=== PATIENT | female | born 1965 | race Caucasian/White ===

== ENCOUNTER 2016-05-24 08:05 | Outpatient (CLI) | payer MEDICARE, OTHER ==
[~2016-05-24] VITALS: Ht 149.9 cm; Wt 93.9 kg
[~2016-05-24 08:05] MED LIST: CEFA1VIA3 IV; CEFA2PIG IV; CEPH-507 PO; GABA-488 PO; MONT10TA24 PO; QUET25TA73 PO; SIMV40TA4 PO; VENL75CA93 PO
[2016-05-24] MEDS ORDERED: BUPIVACAINE 0.25% 30 ML (SENSORCAINE) VIAL ONE (08:08)
[2016-05-24] MEDS ORDERED: TRIAMCINOLONE ACET (KENALOG-40) 40 MG/ML 1 ML VIAL ONE (08:08)
--- OUTSIDE RECORDS SUMMARY | 2016-05-24 08:10 | XMS REPORT ---
Author Yolanda Mayer [facility] Address [address] [place], [place] [id number] Care Team Providers Care Chiropractic Assistant Name Role Phone Yolanda Washington PCP Unavailable Allergies and Adverse Reactions Name Reaction Notes ibuprofen Oxycodone involuntary movements Plan of Treatment Planned Activity Comments Planned Date Planned Time Plan/Goal Postmenopausal bleeding ASSAY OF PARATHORMONE 11/02/2014 12:00 AM Medications Active Name Start Date Estimated Completion Date SIG Comments quetiapine 50 mg oral tablet take 1 tablet (50 mg) by oral route 2 times per day Nexium 20 mg oral capsule,delayed release(DR/EC) take 1 capsule (20 mg) by oral route once daily at least 1 hour before a meal swallowing whole. Do not crush or chew granules. vitamin E 400 unit oral capsule take 1 capsule by oral route daily Vitamin C 500 mg oral capsule, extended release take 1 capsule by oral route daily Kangaroo Kenan Pump Set miscellaneous misc dicyclomine 10 mg oral capsule 11/02/2014 take 1 capsule (10 mg) by oral route 3 times per day simvastatin 40 mg oral tablet 11/02/2014 take 1 tablet (40 mg) by oral route once daily in the evening Singulair 10 mg oral tablet 11/02/2014 take 1 tablet (10 mg) by oral route once daily in the evening simvastatin 40 mg oral tablet 12/02/2014 take 1 tablet (40 mg) by oral route once daily in the evening dicyclomine 10 mg oral capsule 12/16/2014 take 1 capsule (10 mg) by oral route 3 times per day allopurinol 100 mg oral tablet 12/28/2014 12/23/2015 take 2 tablets (200 mg) by oral route once daily for 90 days venlafaxine 150 mg oral tablet extended release 24hr 03/27/2015 09/23/2015 take 1 tablet (150 mg) by oral route once daily in the morning at the same time each for 30 days montelukast 10 mg oral tablet 05/31/2015 TAKE ONE TABLET BY MOUTH ONCE DAILY IN THE EVENING simvastatin 40 mg oral tablet 05/31/2015 TAKE ONE TABLET BY MOUTH ONCE DAILY IN THE EVENING dicyclomine 10 mg oral capsule 08/15/2015 TAKE ONE CAPSULE BY MOUTH THREE TIMES DAILY valsartan 80 mg oral tablet take 1 tablet (80 mg) by oral route once daily ketoconazole 2 % topical cream 09/04/2015 apply to the affected area(s) by topical route twice a day Provera 10 mg oral tablet 09/11/2015 take 1 tablet (10 mg) by oral route BID for 5 days each month. Name Start Date Expiration Date SIG Comments gabapentin 300 mg oral capsule 11/30/2014 03/30/2015 take 1 capsule (300 mg) by oral route 3 times per day for 30 days clonazepam 0.5 mg oral tablet 07/31/2015 08/30/2015 take 1 tablet by oral route 3 times a for 30 days Discontinued Name Start Date Discontinued Date SIG Comments ferrous sulfate oral 05/15/2015 Calcium+D oral 05/31/2015 mirtazapine 15 mg oral tablet 10/31/2014 05/15/2015 take 0.5 tablet (7.5 mg) by oral route once daily before bedtime for 2 weeks then every other day forr 2 weeks Singulair 10 mg oral tablet 12/02/2014 05/31/2015 take 1 tablet (10 mg) by oral route once daily in the evening gabapentin 300 mg oral capsule 04/02/2015 09/04/2015 TAKE ONE CAPSULE BY MOUTH THREE TIMES DAILY Cytotec 200 mcg oral tablet 05/31/2015 06/12/2015 take 2 tabs nite prior to surgery Provera 10 mg oral tablet 06/12/2015 09/04/2015 take 1 tab po BID x 5 days each month Problem List Description Status 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 Depression Active Gout Active Hypercholesteremia Active Hypertension Active Kidney disease Active Vital Signs Date Time BP-Sys(mm[Hg] BP-Renata(mm[Hg]) HR(bpm) RR(rpm) Temp WT HT HC BMI BSA BMI Percentile O2 Sat(%) 09/11/2015 10:04:00 AM 123 mmHg 87 mmHg 98 bpm 96.8 F 214 lbs 59 in 43.22 kg/m2 2.01 m2 09/04/2015 4:03:00 PM 132 mmHg 78 mmHg 79 bpm 20 rpm 98.2 F 217 lbs 59 in 43.8282 kg/m 2.0242 m 98 % 07/18/2015 10:24:00 AM 130 mmHg 66 mmHg 91 bpm 20 rpm 97.8 F 227 lbs 59 in 45.85 kg/m2 2.07 m2 92 % 06/12/2015 10:01:00 AM 111 mmHg 77 mmHg 88 bpm 96.6 F 225 lbs 59 in 45.444 kg/m 2.0612 m 05/31/2015 1:56:00 PM 112 mmHg 81 mmHg 86 bpm 98 F 226.5 lbs 59 in 45.75 kg/m2 2.07 m2 05/15/2015 3:46:00 PM 138 mmHg 82 mmHg 98 bpm 22 rpm 97.5 F 223 lbs 59 in 45.0401 kg/m 2.052 m 94 % 12/12/2014 2:02:00 PM 134 mmHg 78 mmHg 110 bpm 22 rpm 97.5 F 228 lbs 59 in 46.05 kg/m2 2.07 m2 91 % 11/30/2014 8:25:00 AM 128 mmHg 70 mmHg 102 bpm 18 rpm 97.6 F 227.375 lbs 59 in 45.9237 kg/m 2.072 m 93 % 10/31/2014 9:06:00 AM 132 mmHg 76 mmHg 114 bpm 18 rpm 97.1 F 226.5 lbs 59 in 45.75 kg/m2 2.07 m2 93 % Social History Name Description Comments Alcohol Never Tobacco Never smoker History of Procedures Date Ordered Description Order Status 03/14/2015 12:00 AM FLU VACC 4 VANESSA 3 YRS PLUS IM Reviewed 03/14/2015 12:00 AM FLU VACCINE 4 VANESSA 6-35 MO IM Reviewed 05/15/2015 12:00 AM MRI LUMBAR SPINE W/O DYE Reviewed 05/15/2015 12:00 AM US EXAM PELVIC COMPLETE Reviewed 05/15/2015 12:00 AM Orthopedic Consult Reviewed 05/15/2015 12:00 AM NATURAL SCIENCE MANAGER Consult Reviewed 10/31/2014 12:00 AM COMPREHEN METABOLIC PANEL Reviewed 10/31/2014 12:00 AM LIPID PANEL Reviewed 10/31/2014 12:00 AM ASSAY OF BLOOD/URIC ACID Reviewed 10/31/2014 12:00 AM COMPLETE CBC W/AUTO DIFF WBC Reviewed 10/31/2014 12:00 AM ASSAY OF IRON Reviewed 11/30/2014 12:00 AM Physiatry Consult Reviewed 12/16/2014 12:00 AM INJECT SPINE LUMBAR/SACRAL Reviewed 01/05/2015 12:00 AM RENAL FUNCTION PANEL Reviewed Results Summary Data and Description Results 11/01/2014 8:40 AM WBC 4.8 RBC 4.33 HGB 12.70 g/dLHCT 39.80 %MCV 92.0 fLMCH 29.30 pgMCHC 31.90 g/dLRDW CV 15.0 %MPV 10.60 fLPLT 194 %NEUT 71.20 %%LYMP 19.50 %%MONO 6.80 %%EOS 2.30 %%BASO 0.20 %#NEUT 3.43 #LYMP 0.94 #MONO 0.33 #EOS 0.11 #BASO 0.01 IRON TOTAL 116.0 ug/dLTRIGLYCERIDES 510.0 mg/dLCHOLESTEROL 299.0 mg/dLHDL 40.0 mg/dLLDL (CALC) INVALID MG/DLURIC ACID 5.0 mg/dLGLUCOSE 115.0 mg/dLSODIUM 142.0 mmol/LPOTASSIUM 4.40 mmol/LCHLORIDE 108.0 mmol/LCO2 22.0 mmol/LBUN 55.0 mg/dLCREATININE 2.10 mg/dLSGOT/AST 19.0 IU/LSGPT/ALT 25.0 IU /LALK PHOS 101.0 IU/LTOTAL PROTEIN 7.30 g/dLALBUMIN 4.20 g/dLTOTAL BILI 0.30 mg/ dLCALCIUM 12.80 mg/dLeGFR 01/10/2015 1:00 PM GLUCOSE 76.0 mg/dLSODIUM 142.0 mmol/LPOTASSIUM 5.10 mmol/ LCHLORIDE 108.0 mmol/LCO2 23.0 mmol/LBUN 72.0 mg/dLCREATININE 2.40 mg/dLALBUMIN 4.0 g/dLCALCIUM 9.70 mg/dLPHOSPHORUS 4.70 mg/dLeGFR 02/03/2015 9:10 AM Complement C3, Serum 127.0 mg/dLImmunoglobulin G, Qn,Serum 710.0 mg/dLImmunoglobulin A, Qn,Serum 115.0 mg/dLGamma Globulin 0.80 g/ dLGlobulin, Total 2.80 g/dLA/G Ratio 1.1 Complement C4, Serum 57.0 mg/ dLCalcitriol(1,25 di-OHVit D) 15.80 pg/mL 02/05/2015 10:32 AM Creatinine 2.20 mg/dLCREAT UR 42.90 mg/dLCREAT CLEAR 27.10 mL/minCALCIUM UR <2.0 mg/dL 06/12/2015 8:50 AM COLOR YELLOW APPEARANCE CLOUDY SPEC GRAV 1.025 pH 5.0 PROTEIN 30 GLUCOSE NEGATIVE mg/dLKETONE NEGATIVE BILIRUBIN NEGATIVE BLOOD LARGE NITRITE NEGATIVE LEUK SCREEN SMALL CASTS/LPF NEGATIVE /LPFCRYSTALS NEGATIVE MUCOUS THRDS FEW BACTERIA 1+ EPITH CELLS 2++ SQUAMOUS /HPFTRICHOMONAS NEGATIVE YEAST NEGATIVE PROTEIN UR 27.0 mg/dLCREAT UR RAND 101.80 mg/dLWBC 4.5 RBC 4.23 HGB 11.90 g/dLHCT 38.80 %MCV 92.0 fLMCH 28.10 pgMCHC 30.70 g/dLRDW CV 14.80 % MPV 10.60 fLPLT 172 %NEUT 72.40 %%LYMP 19.20 %%MONO 5.30 %%EOS 2.90 %%BASO 0.20 %#NEUT 3.25 #LYMP 0.86 #MONO 0.24 #EOS 0.13 #BASO 0.01 GLUCOSE 148.0 mg/ dLSODIUM 144.0 mmol/LPOTASSIUM 4.0 mmol/LCHLORIDE 108.0 mmol/LCO2 22.0 mmol/ LBUN 52.0 mg/dLCREATININE 2.0 mg/dLALBUMIN 4.20 g/dLCALCIUM 10.40 mg/ dLPHOSPHORUS 4.30 mg/dLeGFR 26 History Of Immunizations Name Date Admin Mfg Name Mfg Code Trade Name Lot# Route Inj Vis Given Vis Pub CVX Influenza 03/14/2015 sanofi pasteur PMC Fluzone Quadrivalent [id number] Intramuscular Left Deltoid 03/14/2015 12/16/2014 141 History of Past Illness Name Date of Onset Comments Blind in both eyes Kidney disease kidney failure Hypertension Depression Hypercholesteremia Gout Anxiety Irritable bowel Iron deficiency anemia Oct 31 2014 9:12AM Chronic kidney disease, stage 3 Oct 31 2014 9:12AM Benign essential hypertension Oct 31 2014 9:12AM Hyperlipidemia Oct 31 2014 9:12AM Left Sciatica Oct 31 2014 9:12AM Gout Oct 31 2014 9:12AM Hypercalcemia Nov 02 2014 12:12PM Radiating back pain Nov 30 2014 8:30AM Iron deficiency anemia Nov 30 2014 8:30AM Chronic kidney disease, stage 3 Nov 30 2014 8:30AM Benign essential hypertension Nov 30 2014 8:30AM Hyperlipidemia Nov 30 2014 8:30AM Lumbar back pain Dec 16 2014 12:40PM Radiating back pain Dec 12 2014 2:04PM Iron deficiency anemia Dec 12 2014 2:04PM Chronic kidney disease, stage 3 Dec 12 2014 2:04PM Benign essential hypertension Dec 12 2014 2:04PM Hyperlipidemia Dec 12 2014 2:04PM Chronic kidney disease (CKD), stage 3 (moderate) Jan 05 2015 10:42AM Flu Vaccine Mar 17 2015 10:05AM Radiating back pain May 15 2015 3:48PM Postmenopausal bleeding May 15 2015 3:48PM Abnormal uterine bleeding unrelated to menstrual cycle May 31 2015 2:02PM Perimenopausal May 31 2015 2:02PM Obesity (BMI 35.0-39.9 without comorbidity) May 31 2015 2:02PM Dysfunctional Uterine Bleeding Jun 12 2015 10:05AM Hypertension Jul 18 2015 10:29AM Chronic kidney disease (CKD) stage G3a/A1, moderately decreased glomerular filtration rate (GFR) between 45-59 mL/min/1.73 square meter and albuminuria creatinine ratio less than 30 mg/g Jul 18 2015 10:29AM Radiating back pain Jul 18 2015 10:29AM Hypoxia Jul 18 2015 10:29AM Other constipation Jul 18 2015 10:29AM Encounter for screening mammogram for breast cancer Sep 11 2015 10:34AM Payers Insurance Name Company Name Plan Name Plan Number Policy Number Policy Group Number Start Date [facility] [id number] N/A Medicare Part A Medicare RHC [id number] N/A Medicare Part A Medicare Part A [id number] Saturday, 1987 Medicare Part B Medicare Of [place] [id number] N/A Medicare Part A Medicare - Lab/Xray [id number] Wednesday, April [id number] History of Encounters Visit Date Visit Type Provider 09/11/[address] Yolanda Washington MD 09/04/2015 Office visit Fredi Carpenter DO 07/18/2015 Office visit Fredi Carpenter DO 07/14/2015 Hospital Radha Arciniega MD 07/14/2015 Hospital Renan Delcid MD 06/12/[address] Yolanda Washington MD 05/31/[address] Yolanda Washington MD 05/15/2015 Office visit Fredi Carpenter DO 03/14/2015 Nurse visit Fredi Carpenter DO 12/12/2014 Office visit Fredi Carpenetr DO 11/30/2014 Office visit Fredi Carpenter DO 10/31/2014 Office visit Fredi Carpenter DO
[2016-05-24 08:22] VITALS: BP 129/76
[2016-05-24 09:05] VITALS: BP 118/82
--- NOTE | 2016-05-24 11:42 | Pain Medicine-Procedure ---
Procedure Pre-Op/Post-Op Diagnosis Diagnosis: Disc disorder with radiculopathy, lumbar Indications for Operation Low back pain and hip pain Attending Surgeon Laura Procedure Date of Service: May 24, 2016 PROCEDURE: Caudal Epidural Steroid Injection with catheter and right sacroiliac joint injection under Flouroscopic Guidance PROCEDURE NOTE: After obtaining written informed consent patient was taken to the procedure room. Vital signs were monitored through out the procedure. A time out was performed. The patient was placed in the prone position on fluoroscopy table. The lower back above the caudal space was prepped with chloraprep and draped in the usual sterile fashion. The skin over the sacral hiatus was identified under fluoroscopic guidance and infiltrated with 1% lidocaine for local anesthesia via 25 gauge needle. An 17-gauge epimed needle was used to access the epidural space under fluoroscopic guidance and was then advanced into the epidural space under fluoroscopic guidance in the AP view. The epimed catheter was then advanced under flourospopic guidance to the L5-S1 interspace. There was no paresthesia with catheter placement. After negative aspiration 1 cc of the contrast dye was injected through the needle with good spread of the medication in the epidural space at the appropriate levels. Again, after negative aspiration, 80 mg of kenalog with 2 cc of 0.25% marcaine and 2 mL's of preservative free normal saline was injected. There was no evidence of CSF, paresthesia or heme during the procedure. The catheter and needle were withdrawn as a unit and the tip was noted to be intact upon removal. Skin was cleaned and a sterile dressing was applied. Attention was then directed to the right sacroiliac joint which was identified under fluoroscopic guidance. The skin overlying the posterior inferior one third of the sacroiliac joint was anesthetized with 1 percent lidocaine and a 22 -gauge 3-1/2 inch needle was inserted and advanced into the joint. Following negative aspiration a total of 40 mg of Kenalog and 2 mL of 0.25 percent bupivacaine was injected. Needle was flushed with lidocaine and removed. Sterile bandage was applied. Patient tolerated the procedures well with no apparent complications. Complications None DARREL MILLER MD May 24, 2016 11:42 am
== END 2016-05-24 09:06 | disposition home or self-care (01) ==
LOC: CARD 08:05
PROVIDERS: ATTEND Pain Medicine Pain Medicine
DX: M53.3 Sacrococcygeal disorders, not elsewhere classified (principal); M51.16 Intervertebral disc disorders with radiculopathy, lumbar region; M96.1 Postlaminectomy syndrome, not elsewhere classified; Z79.899 Other long term (current) drug therapy
CPT/HCPCS: 27096; 62323